=== PATIENT | male | born 1960 | race Caucasian/White ===

== ENCOUNTER → 2017-04-19 | Outpatient (CLI) | payer BC ==
[~2017-04-19] VITALS: Ht 182.9 cm; Wt 99.8 kg
[~2017-04-19] MED LIST: ALEV220T26 PO; LIDOCAINE 2% INJ 100 MG/5 ML SDV (FOR ANES.) As Ordered ONE; MAGN200T PO; MULT1TAB8 PO; NS 1,000 ML IV ONE; PANT40TA2 PO; PROPOFOL 200 MG/20 ML VIAL As Ordered ONE
--- NOTE | 2017-04-19 09:25 | ROOR ---
Patient Name: Oscar Lares Procedure Date: 04/19/2017 8:51 AM Date of : 1960 Age: 57 Room: [facility] Gender: Male Note Status: Finalized Procedure: Colonoscopy Indications: Screening for colorectal malignant neoplasm Providers: DO Elizabeth Mohamud MD: CHAS BRANDT Requesting Provider: Medicines: Propofol per Anesthesia Complications: No immediate complications. Procedure: Pre-Anesthesia Assessment: - Prior to the procedure, a History and Physical was performed, and patient medications and allergies were reviewed. The patient is competent. The risks and benefits of the procedure and the sedation options and risks were discussed with the patient. All questions were answered and informed consent was obtained. Patient identification and proposed procedure were verified by the physician, the nurse, the anesthesiologist and the heavy equipment service technician in the endoscopy suite. Mental Status Examination: alert and oriented. Airway Examination: normal oropharyngeal airway and neck mobility. Respiratory Examination: clear to auscultation. CV Examination: normal. Prophylactic Antibiotics: The patient does not require prophylactic antibiotics. Prior Anticoagulants: The patient has taken no previous anticoagulant or antiplatelet agents. ASA Grade Assessment: II - A patient with mild systemic disease. After reviewing the risks and benefits, the patient was deemed in satisfactory condition to undergo the procedure. The anesthesia plan was to use monitored anesthesia care (MAC). Immediately prior to administration of medications, the patient was re-assessed for adequacy to receive sedatives. The heart rate, respiratory rate, oxygen saturations, blood pressure, adequacy of pulmonary ventilation, and response to care were monitored throughout the procedure. The physical status of the patient was re-assessed after the procedure. The Colonoscope was introduced through the anus and advanced to the cecum, identified by the appendiceal orifice, ileocecal valve and palpation. The colonoscopy was performed without difficulty. The patient tolerated the procedure well. Findings: Multiple small-mouthed diverticula were found in the sigmoid colon. A polyp was found in the sigmoid colon. The polyp was hyperplastic. The polyp was removed with a cold biopsy forceps. Resection and retrieval were complete. A polyp was found in the transverse colon. The polyp was hyperplastic. The polyp was removed with a hot snare. Resection and retrieval were complete. Multiple flat polyps were found in the rectum. The polyps were 1 to 10 mm in size. These were biopsied with a cold forceps for histology. The exam was otherwise without abnormality on direct and retroflexion views. Impression: - Diverticulosis in the sigmoid colon. - One polyp in the sigmoid colon, removed with a cold biopsy forceps. Resected and retrieved. - One polyp in the transverse colon, removed with a hot snare. Resected and retrieved. - Multiple 1 to 10 mm polyps in the rectum. Biopsied. - The examination was otherwise normal on direct and retroflexion views. Recommendation: - Patient has a contact number available for emergencies. The signs and symptoms of potential delayed complications were discussed with the patient. Return to normal activities tomorrow. Written discharge instructions were provided to the patient. - Telephone my office for pathology results in 1 week. - Repeat colonoscopy in 3 - 5 years for surveillance based on pathology results. Curt Sexton DO 04/19/2017 9:24:55 AM This report has been signed electronically. Number of Addenda: 0 Note Initiated On: 04/19/2017 8:51 AM Estimated Blood Loss: Estimated blood loss was minimal.
[2017-04-19 09:50] VITALS: BP 131/77
== END ==
LOC: M OPP 07:34
PROVIDERS: ATTEND Surgery
DX: Z12.11 Encounter for screening for malignant neoplasm of colon (principal); D12.5 Benign neoplasm of sigmoid colon; D12.3 Benign neoplasm of transverse colon; K62.1 Rectal polyp; K57.30 Diverticulosis of large intestine without perforation or abscess without bleeding; I10 Essential (primary) hypertension; R10.9 Unspecified abdominal pain; Z87.442 Personal history of urinary calculi; K21.9 Gastro-esophageal reflux disease without esophagitis; F17.200 Nicotine dependence, unspecified, uncomplicated; Z79.899 Other long term (current) drug therapy; Z88.0 Allergy status to penicillin

== ENCOUNTER → 2022-01-14 | Outpatient (CLI) | payer BC, OTHER ==
[~2022-01-14] MED LIST changes: -LIDOCAINE 2% INJ 100 MG/5 ML SDV (FOR ANES.) As Ordered ONE; +MELO15TA28 PO; -NS 1,000 ML IV ONE; -PANT40TA2 PO; +PANT40TA29 PO; -PROPOFOL 200 MG/20 ML VIAL As Ordered ONE
== END ==
LOC: M LABSMTC 10:55
PROVIDERS: ATTEND Anesthesiology
DX: Z01.812 Encounter for preprocedural laboratory examination (principal); Z20.822 Contact with and (suspected) exposure to COVID-19

== ENCOUNTER 2022-01-19 09:43 | Day surgery (SDC) | payer OTHER ==
[~2022-01-19] VITALS: Ht 180.3 cm; Wt 102.1 kg
[~2022-01-19 09:43] MED LIST changes: +NS 1,000 ML IV ONE
[2022-01-19] MEDS ORDERED: LIDOCAINE 2% 100MG/5ML SDV (FOR ANES.) As Ordered ONE (10:24)
[2022-01-19] MEDS ORDERED: propofoL 200 MG/20 ML VIAL As Ordered ONE (10:24)
[2022-01-19 12:10] VITALS: BP 133/83
== END 2022-01-19 12:28 | disposition home or self-care (01) ==
LOC: M OPP 09:43
PROVIDERS: ATTEND Surgery
DX: Z12.11 Encounter for screening for malignant neoplasm of colon (principal); Z86.010 Personal history of colon polyps; D12.3 Benign neoplasm of transverse colon; K57.30 Diverticulosis of large intestine without perforation or abscess without bleeding; K64.1 Second degree hemorrhoids; Z88.0 Allergy status to penicillin

== ENCOUNTER → 2023-05-19 | Outpatient (CLI) | payer OTHER ==
[~2023-05-19] MED LIST changes: -NS 1,000 ML IV ONE
== END ==
LOC: M WUC 13:44
PROVIDERS: ATTEND Physician Assistant
DX: M25.512 Pain in left shoulder (principal)

== ENCOUNTER → 2024-06-21 | Outpatient (CLI) | payer BC ==
[2024-06-24 07:30] LABS: HEMOGLOBIN A1c 5.7 % (4.0-6.0)
== END ==
LOC: M WUC 13:01
PROVIDERS: ATTEND Physician Assistant
DX: M95.8 Other specified acquired deformities of musculoskeletal system (principal); R73.01 Impaired fasting glucose